=== PATIENT | male | born 1975 | race Asian ===

== ENCOUNTER 2017-12-11 19:16 | Emergency (ER) | payer BC ==
[~2017-12-11] VITALS: Ht 175.3 cm; Wt 121.6 kg
[2017-12-11] MEDS ORDERED: HYDROcodone-ACET 5/325MG TAB PO ONE (23:45)
[2017-12-12 00:12] VITALS: BP 136/100
== END 2017-12-12 00:21 | disposition home or self-care (01) ==
LOC: ER 19:16
DX: M10.9 Gout, unspecified (principal)
CPT/HCPCS: 73562

== ENCOUNTER 2018-03-22 10:38 | Emergency (ER) | payer BC ==
[~2018-03-22] VITALS: Ht 175.3 cm; Wt 122.5 kg
[2018-03-22 10:47] VITALS: BP 135/86
[2018-03-22] MEDS ORDERED: KETOROLAC TROMETH 60MG/2ML VIAL IM ONE (11:30)
== END 2018-03-22 12:42 | disposition home or self-care (01) ==
LOC: ER 10:38
DX: S96.912A Strain of unspecified muscle and tendon at ankle and foot level, left foot, initial encounter (principal); M89.9 Disorder of bone, unspecified; I10 Essential (primary) hypertension; Z91.018 Allergy to other foods; X50.0XXA Overexertion from strenuous movement or load, initial encounter; Y93.89 Activity, other specified; Y99.8 Other external cause status; Y92.524 Gas station as the place of occurrence of the external cause
CPT/HCPCS: 29515; 73610; 96372; 99283; J1885